=== PATIENT | male | born 1965 | race Caucasian/White ===

== ENCOUNTER → 2020-10-31 00:31 | Outpatient (CLI) | payer BC, SELFPAY ==
[2020-10-31 19:08] LABS: SARS-CoV-2 RNA PCR Negative
== END ==
PROVIDERS: PCP Family Medicine; Visit Provider Internal Medicine Gastroenterology
DX: Z01.812 Encounter for preprocedural laboratory examination (principal); Z20.822 Contact with and (suspected) exposure to COVID-19
CPT/HCPCS: C9803; U0003; U0005

== ENCOUNTER 2020-11-03 00:39 | Day surgery (SDC) | payer BC, SELFPAY ==
[2020-10-19 10:02] VITALS: BMI 33.1
--- NOTE | 2020-11-03 09:04 | WPDANESEPPF ---
Anes - Initial Pre Proc Eval Procedure: Operation Date: 11/03/20 10:30 Proposed Procedures p Screening Colonoscopy - Fidel Cole MD Date/Time: 11/03/20 09:04 Surgeon: Fidel Cole MD Pre Op Diagnosis: neoplasm screening Patient Data Age: 55 Gender: M Height: 1.85 m Weight: 114 kg Allergies Allergy/AdvReac Type Severity Reaction Status Date / Time Penicillins Allergy Unknown Verified 10/19/20 10:17 Home Medications Medication Instructions Recorded Confirmed Type sodium,potassium,mag sulfates 17.5 See Rx Instructions PO .COMPLEX 10/11/20 Rx gram-3.13 gram-1.6 gram oral soln #354 ml finasteride [Propecia] 1 mg PO DAILY 10/19/20 10/19/20 History fluticasone propion-salmeterol 1 inh INHALATION BID 10/19/20 10/19/20 History [Advair Diskus] metformin 1,000 mg PO DAILY 10/19/20 10/19/20 History montelukast 10 mg PO DAILY 10/19/20 10/19/20 History valsartan 40 mg PO 10/19/20 History Patient hx anesthesia problems: none Family hx anesthesia problems: none [facility] Past Medical History Medical History (Updated 11/03/20 @ 09:05 by Gaetano Randle MD) Asthma Diabetes Hypertension Obesity Family History Family History (Updated 10/20/20 @ 11:07 by Keyanna Oquendo CMA) Sibling Diabetes mellitus Heart disease Hypertension Social History Social History Years smoked: 2 Smoking status: Former smoker Tobacco type: cigarettes Additional smoking assessment comments: 1 pack per week Alcohol intake: current Drinks per week: 2 Living arrangements: with family Gender identity (if verbalized by the patient): Male Spiritual care concerns: No Anes - Eval Final PreProcedure Day of Procedure 11/03/20 09:04 Patient weight: obese Heart: regular rate and rhythm Lungs: clear to auscultation and normal air movement Airway: Mallampati scale class II Neurological: alert and oriented Last oral intake: >/= 8 hours ASA classification: III Emergent: no Anesthetic plan: proceed Anesthesia type and monitoring: general GIVS Informed Consent: The patient's anesthetic plan and its attendant risks and benefits were discussed with the patient/family/POA. Questions were solicited and answers provided to the satisfaction of the patient/family/POA.
[2020-11-03 09:08] VITALS: BP 136/89; PULSE 67; RESP 16; TEMP 36.3; O2SAT 98
[2020-11-03 09:18] LABS: Glucose Point of Care 127 (65-105)
[2020-11-03] MEDS: LACTATED RINGERS 1,000 ML 150 ML IV CONT (09:18)
--- NOTE | 2020-11-03 10:17 | PM.HPGS ---
History of Present Illness History of Present Illness Consent: Risks, benefits, and alternatives have been discussed and questions answered. Patient agrees to proceed with procedure. Chief complaint: neoplasm screening Narrative: Anthony Georges is a 55 year old male here for first screening colonoscopy Review of Systems Constitutional: Constitutional: Denies headache(s) and Denies weakness Eyes: Eyes: Denies blurry vision ENT: Reports Normal hearing present, Denies headache(s) and Denies neck pain Cardiovascular: Cardiovascular: Denies chest pain and Denies dyspnea Respiratory: Respiratory: Denies dyspnea Gastrointestinal: Gastrointestinal: Reports no additional gastrointestinal complaints Genitourinary: Genitourinary: Denies dysuria Musculoskeletal: Musculoskeletal: Denies neck pain Integumentary/Breasts: Skin/Breast: Denies dry skin Neurologic: Reports Normal hearing present, Denies headache(s) and Denies weakness Psychiatric: Psychiatric: Denies anxiety Endocrine: Endocrine: Denies change in body appearance Hematologic/Lymphatic: Hematologic/Lymphatic: Denies easy bleeding Allergic/Immunologic: Allergic/Immunologic: Denies urticaria [facility] Past Medical History Medical History (Updated 11/03/20 @ 10:18 by Fidel Cloe MD) Asthma Colon cancer screening Diabetes Hypertension Obesity Family History Family History (Updated 10/20/20 @ 11:07 by Keyanna Oquendo CMA) Sibling Diabetes mellitus Heart disease Hypertension Social History Social History Years smoked: 2 Smoking status: Former smoker Tobacco type: cigarettes Additional smoking assessment comments: 1 pack per week Alcohol intake: current Drinks per week: 2 Living arrangements: with family Gender identity (if verbalized by the patient): Male Spiritual care concerns: No Meds Home Medications and Allergies Home Medications Medication Instructions Recorded Confirmed Type sodium,potassium,mag sulfates 17.5 See Rx Instructions PO .COMPLEX 10/11/20 Rx gram-3.13 gram-1.6 gram oral soln #354 ml finasteride [Propecia] 1 mg PO DAILY 10/19/20 11/03/20 History fluticasone propion-salmeterol 1 inh INHALATION BID 10/19/20 11/03/20 History [Advair Diskus] metformin 1,000 mg PO DAILY 10/19/20 11/03/20 History montelukast 10 mg PO DAILY 10/19/20 11/03/20 History valsartan 40 mg PO BID 10/19/20 11/03/20 History Allergies Allergy/AdvReac Type Severity Reaction Status Date / Time Penicillins Allergy Unknown Verified 10/19/20 10:17 Vital Signs Vital Signs - 24 hr 11/03/20 09:08 Temperature 97.3 F L Pulse Rate 67 Respiratory Rate 16 Blood Pressure 136/89 Pulse Oximetry 98 Exam Const: General: comfortable and no acute distress HENMT: General nose exam: Normal nares present Eyes: General: appearance normal, both eyes and all related structures Neck: Neck: no JVD Resp: Auscultation: clear to auscultation bilaterally Cardio: Rate: regular rate Rhythm: regular rhythm GI: Inspection: non-distended GI Palp: Yes Soft to palpation Skin: General skin exam: normal color Neuro: General: gait normal Speech: normal speech Extrem: General: normal to inspection Psych: Mental Status: mental status grossly normal Assessment and Plan Assessment and plan (1) Colon cancer screening: Code(s): Z12.11 - Encounter for screening for malignant neoplasm of colon Status: Acute Assessment and Plan: proceed with colonoscopy
[2020-11-03 10:45] VITALS: BP 133/84; PULSE 68; RESP 20; O2SAT 98
[2020-11-03 10:55] VITALS: BP 146/86; PULSE 60; RESP 18; O2SAT 99
[2020-11-03 10:56] LABS: Glucose Point of Care 117 (65-105)
[2020-11-03 11:05] VITALS: BP 141/93; PULSE 62; RESP 20; O2SAT 98
== END 2020-11-03 11:14 | disposition home or self-care (01) ==
PROVIDERS: PCP Family Medicine Sports Medicine; Visit Provider Internal Medicine Gastroenterology
PROC: 0DJD8ZZ Inspection of Lower Intestinal Tract, Via Natural or Artificial Opening Endoscopic (ICD-10-PCS; CPT 45378; principal; 2020-11-03 10:30)
DX: Z12.11 Encounter for screening for malignant neoplasm of colon (principal); D12.0 Benign neoplasm of cecum; D12.4 Benign neoplasm of descending colon; Z79.51 Long term (current) use of inhaled steroids; E11.9 Type 2 diabetes mellitus without complications; I10 Essential (primary) hypertension; Z87.891 Personal history of nicotine dependence; E66.9 Obesity, unspecified; Z68.33 Body mass index [BMI] 33.0-33.9, adult; K64.8 Other hemorrhoids; Z79.84 Long term (current) use of oral hypoglycemic drugs; J45.909 Unspecified asthma, uncomplicated
CPT/HCPCS: 45385; 82948; 88305; C9803; J2704; J7120; U0003; U0005

== ENCOUNTER 2022-05-31 07:58 | Outpatient (CLI) | payer BC, SELFPAY ==
--- NOTE | 2022-05-31 | ECG_ITS ---
Measurements Intervals [place] Rate: 63 P: 62 VA: 168 QRS: 77 QRSD: 133 T: 16 QT: 415 QTc: 427 Interpretive Statements SINUS RHYTHM RIGHT BUNDLE BRANCH BLOCK NONSPECIFIC ST ELEVATION IN DIFFUSE LEADS ABNORMAL ECG NO PREVIOUS ECG AVAILABLE FOR COMPARISON Electronically Signed On 05-31-2022 9:52:42 CDT by Isma Epstein D.O.
[2022-05-31 08:52] LABS: Hematocrit 44.6 % (42.0-52.0); Hemoglobin 15.5 g/dL (14.0-18.0); Mean Corpuscular HGB Conc 34.8 g/dl (32-36); Mean Corpuscular Hemoglobin 30.8 pg (26-34); Mean Corpuscular Volume 88.7 fl (80-100); Mean Platelet Volume 9.9 fl (7.4-10.4); Platelet Count Result 185 k/mm3 (150-375); Red Blood Count 5.03 M/mm3 (4.6-6.20); Red Cell Distribution Width 12.7 % (11.5-14.5); White Blood Count 7.1 K/mm3 (4.5-10.0)
[2022-05-31 09:06] LABS: Alanine Aminotransferase 38 U/L (6-50); Albumin Level 4.9 g/dL (3.5-5.1); Alkaline Phosphatase 67 U/L (38-126); Anion Gap 14 mmol/L (8-16); Aspartate Amino Transferase 34 U/L (17-59); Bilirubin,Total 0.3 mg/dL (0.2-1.3); Blood Urea Nitrogen 18 mg/dL (9-20); Calcium 9.3 mg/dL (8.4-10.2); Carbon Dioxide 27 mmol/L (22-30); Chloride 99 mmol/L (98-107); Estimated Glomerular Filt Rate > 60; Glucose 166 mg/dL (65-110); Potassium 4.4 mmol/L (3.4-5.0); Sodium 140 mmol/L (137-145)
== END 2022-05-31 07:59 | disposition home or self-care (01) ==
LOC: ANHLAB 08:01
PROVIDERS: PCP Family Medicine Sports Medicine; Visit Provider Orthopaedic Surgery
DX: Z01.812 Encounter for preprocedural laboratory examination (principal); M23.301 Other meniscus derangements, unspecified lateral meniscus, left knee
CPT/HCPCS: 36415; 80053; 85027; 93005